=== PATIENT | male | born 1940 | race Caucasian/White ===

== ENCOUNTER 2022-06-07 08:45 | Emergency (ER) | payer OTHER ==
[~2022-06-07] VITALS: Ht 177.8 cm; Wt 77.0 kg
[2022-06-07] VITALS (11 sets, daily range): BP systolic 142–158; BP diastolic 78–100
[~2022-06-07 08:45] MED LIST: ADALAT CC OR; ALTACE10 M1 OR; ASPIRIN81 MG OR; CO Q-1050 MG OR; CRESTOR10 MG OR; DETROL LA4 MG OR; HYDROCHLOROT25 MG OR; LORTAB 7.5 OR; MEDDOSEPAK OR; METOPROL TAR50 MG OR; OMEPRAZOLE20 MG OR; PROBENECID PO; PROCA OR
[2022-06-07] MEDS ORDERED: PENTOXIFYLLI400 M1 PO (09:05)
[2022-06-07] MEDS ORDERED: ALLOPURINOL100 MG PO (09:05)
[2022-06-07] MEDS ORDERED: NITROLINGUAL SPRAY D TL (09:06)
[2022-06-07 09:38] LABS: ALBUMIN 4.3 g/dL (3.2-5.0); ALKALINE PHOSPHATASE 49 u/l (38-126); ANION GAP 9 (6-22 (CALC)); BILIRUBIN, TOTAL 0.6 mg/dL (0.0-1.4); BUN 21 mg/dL (8-23); BUN/CREATININE RATIO 19 (12-20 (CALC)); CARBON DIOXIDE 30 mmol/l (22-30); CHLORIDE 105 mmol/l (95-108); CREATININE 1.1 mg/dL (0.7-1.3); GFR FOR AFR.AMER. > 60 ML/MIN (>=60 (CALC)); GFR OTHER RACES > 60 ML/MIN (>=60 (CALC)); POTASSIUM 4.3 mmol/l (3.5-5.1); SGOT/AST 40 u/l (19-48); SODIUM 140 mmol/l (137-146); TOTAL PROTEIN 7.2 g/dL (6.3-8.2)
[2022-06-07 09:40] LABS: HEMATOCRIT 42.1 % (39.0-50.0); HEMOGLOBIN 13.7 g/dl (14.0-18.0); MEAN CELL VOLUME 89.8 fL CALC (80.0-100.0); MEAN CORPUSCULAR HGB 29.2 pG CALC (26.0-32.0); MEAN CORPUSCULAR HGB CONC 32.5 g/dL CAL (32.0-36.0); NEUT# 4.73 thou/uL (1.82-7.42); RED BLOOD COUNT 4.69 mill/uL (4.70-6.10); RED CELL DISTRI WIDTH 15.5 % (11.5-15.5)
[2022-06-07 10:21] LABS: URINE BILIRUBIN - DIPSTICK NEGATIVE (NEGATIVE); URINE BLOOD DIPSTICK NEGATIVE (NEGATIVE); URINE COLOR YELLOW; URINE GLUCOSE - DIPSTICK NEGATIVE (NEGATIVE); URINE KETONE NEGATIVE (NEGATIVE); URINE LEUK ESTERASE NEGATIVE (NEGATIVE); URINE PROTEIN - DIPSTICK NEGATIVE (NEG-TRACE); URINE UROBILINOGEN - DIPSTICK 0.2 E.U./dL (0.2)
[2022-06-07 10:22] LABS: URINE NITRITE - DIPSTICK NEGATIVE (Negative)
[2022-06-07] MEDS ORDERED: PYRIDIUM200 MG PO (10:54)
== END 2022-06-07 11:11 | disposition home or self-care (01) | DRG 696 ==
LOC: ED 08:45
PROVIDERS: Internal Medicine
DX: R30.0 Dysuria (principal); I25.10 Atherosclerotic heart disease of native coronary artery without angina pectoris; K21.9 Gastro-esophageal reflux disease without esophagitis; E78.00 Pure hypercholesterolemia, unspecified; Z95.5 Presence of coronary angioplasty implant and graft